=== PATIENT | female | born 1945 | race Caucasian/White ===

== ENCOUNTER 2022-02-01 11:18 | Observation (INO) ==
[2022-02-01] MEDS ORDERED: SODIUM CHLORIDE 0.9% 1000ML 1,000 ML IV STA (11:33)
[2022-02-01] MEDS ORDERED: METOPROLOL TARTRATE 1 MG/ML VIAL IV PRN (11:51)
--- NOTE | 2022-02-01 11:57 | Emergency Department Note ---
Impression & Plan Tachycardia, Dizziness, Anemia ED Provider Note NAME: JIL HALL AGE: 76 SEX: F : 1945 ARRIVES VIA: Ambulance INFORMANT: [Patient] ED PROVIDER(S): [Sukhjinder Vee MD] CHIEF COMPLAINT: Cardiac assessment HISTORY OF PRESENT ILLNESS: The patient is a 76-year-old female who presents to the ER with a faster heart rate. The patient was at her doctor's office for a follow-up appointment and the faster heart rate was noted. She presents by ambulance. She has felt a bit dizzy lately and thought she may have noticed a faster heart rate on the way over in the ambulance. No chest pain. She does feel short of breath with exertion and with stairs, she has noticed this for a few weeks. There has been no cough or congestion. She has had some GI upset lately. She attributes the GI upset to what she had eaten. She had some diarrhea without vomiting. She does have a history of IBS. The patient has no history of coronary disease or A. fib/a flutter. She was never told that she had a rhythm issue. Her does have a history of A. fib and she is familiar with this diagnosis. REVIEW OF SYSTEMS: See HPI for pertinent positives and negatives. A total of ten systems were reviewed and were otherwise negative. PMHx/PSHx: See Below SOCIAL HISTORY: See Below. PHYSICAL EXAM: GENERAL: Patient is in no acute distress. HEENT: No acute trauma, normocephalic atraumatic, mucous membranes moist, no nasal congestion, no scleral icterus. NECK: No stridor, no adenopathy, no meningismus, trachea is midline. LUNGS: Clear to auscultation bilaterally, no wheeze, no rhonchi, breath sounds equal. HEART: Tachycardic and irregular. Subtle systolic murmur heard. ABDOMEN: Soft, nontender, bowel sounds positive, no peritonitis. EXTREMITIES: No cyanosis or edema, full range of motion of all the joints without pain or difficulty, no signs for acute trauma. NEUROLOGIC: Oriented x 3, no acute motor or sensory deficits, no focal weakness. SKIN: No rash, no jaundice, no diaphoresis. Rectal: Brown stool, heme-negative. DIFFERENTIAL DIAGNOSIS: Cardiac ischemia, aortic dissection, pulmonary embolism, SVT, atrial flutter, atrial fibrillation, pneumothorax, pneumonia, pericarditis, myocarditis, esophageal rupture, GERD, cholecystitis, pancreatitis, musculoskeletal, as well as other pathologies. EMERGENCY DEPARTMENT COURSE/PROCEDURES: ECG: Indication was tachycardia. The ECG shows a potential sinus tachycardia with frequent PACs versus an atrial fibrillation/flutter. The rate is 133. There are some T wave inversions in the inferior leads. There is no ST elevation. The QTC is 529. Compared to an ECG from 30 April 2012, significant changes have occurred. Repeat ECG: Indication was tachycardia. The ECG shows a normal sinus rhythm with a rate of 67. There is a left bundle branch block. No ST elevation, no PVCs. The QTc was 479. Compared to today's earlier ECG, the rate has decreased. Continuous Cardiac Monitoring: An order was placed for continuous cardiac monitoring. The monitor shows a rate of 132 with sinus tachycardia and PACs. MEDICAL DECISION MAKING: There was no leukocytosis. The patient was anemic. She has no history of anemia. I did perform a rectal exam, stool was brown and heme-negative. There was a normal platelet count. D-dimer was elevated making PE more likely. No coagulopathy. No renal failure or significant electrolyte abnormality. No concerning liver enzyme elevation. Initial troponin was not elevated making cardiac ischemia less likely. ECG showed a potential sinus tachycardia versus an A. fib/a flutter. Repeat ECG showed a sinus rhythm. The change in her heart rate seemed to happen suddenly and without the administration of rate controlling medications. There was no pancreatitis. The patient did not have any evidence for thyroid dysfunction. Urinalysis did not show infection. COVID test returned negative. Chest x-ray showed potential atelectasis, no CHF. Chest CT did not show any evidence for PE, no pneumonia. The patient received IV saline, 1 L. I had ordered for IV metoprolol for the faster heart rate but, her heart rate suddenly decreased on its own without any medication being administered. I think the patient deserves a hospital stay for further cardiac work-up and monitoring. The cause for the tachycardia is unclear. I am concerned about the possibility of an A. fib or a flutter. Her anemia needs further work-up and the hemoglobin will need to be followed. I spoke with the patient and case management, the on-call hospitalist was consulted. Past Med/Surg History Medical History Acid reflux disease Anxiety Depression Hearing deficit Hiatal hernia Hyperlipidemia Osteoarthritis Surgical History History of appendectomy History of colonoscopy History of dilatation and curettage History of esophagogastroduodenoscopy (EGD) History of left ankle joint replacement History of tooth extraction Family History Other No family history of adverse response to anesthesia Social History Smoking Status: Former smoker Second Hand Exposure: No; Hx Alcohol Use: Yes Alcohol type: wine and hard liquor Hx Substance Use: No Preferred Language: Serbian Communication Ability: Effective 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 Beliefs That Will Affect Care: None Current Living Situation: Spouse Current Living Situation Comment: Lives with Feels Safe at Home: Yes Assistive Devices: Glasses and Hearing Aid - Bilateral Allergies Allergies Allergy/AdvReac Type Severity Reaction Status Date / Time naproxen Allergy Severe throat Verified 02/01/21 13:10 swelling and Hives alendronate sodium AdvReac Mild GERD Verified 02/01/21 13:10 Home Meds Home Medications Medication Instructions Recorded Confirmed aspirin 81 mg tablet,delayed 81 mg PO 3XWK 01/27/21 02/01/21 release ([place] Low Dose Aspirin) cholecalciferol (vitamin D3) 50 2,000 unit PO QAM 01/27/21 02/01/21 mcg (2,000 unit) tablet (Vitamin D3) escitalopram oxalate 10 mg tablet 10 mg PO QAM 01/27/21 02/01/21 (Lexapro) pantoprazole 20 mg tablet,delayed 20 mg PO QAM 01/27/21 02/01/21 release rosuvastatin 10 mg tablet 10 mg PO HS 01/27/21 02/01/21 Results & Data (ED) Vital Signs Vital Signs - 24 hr 02/01/22 11:29 02/01/22 11:29 02/01/22 11:33 Temperature 36.9 C Temperature Source Oral Pulse Rate 128 H Pulse Rate from SpO2 Sensor Pulse Rhythm Regular Pulse Strength Normal Respiratory Rate 20 Respiratory Effort / Characteristics Non-Labored Respiratory Depth Normal Respiratory Pattern Regular Blood Pressure 165/113 H Blood Pressure Mean 130 Blood Pressure Position Lying Pulse Oximetry 98 Oxygen Delivery Method Room Air Room Air Room Air Sepsis Recent Fever Within 48 Hours No Sepsis New/Unexplained Change in Mental Status No Sepsis Action Taken by Nursing No Action Required 02/01/22 11:23 02/01/22 11:24 02/01/22 11:24 Temperature Temperature Source Pulse Rate 129 H 124 H Pulse Rate from SpO2 Sensor 127 H 132 H Pulse Rhythm Pulse Strength Respiratory Rate 10 L 12 Respiratory Effort / Characteristics Respiratory Depth Respiratory Pattern Blood Pressure 169/121 H Blood Pressure Mean 137 Blood Pressure Position Pulse Oximetry 97 92 Oxygen Delivery Method Sepsis Recent Fever Within 48 Hours Sepsis New/Unexplained Change in Mental Status Sepsis Action Taken by Nursing 02/01/22 11:25 02/01/22 11:25 02/01/22 11:29 Temperature Temperature Source Pulse Rate 112 H Pulse Rate from SpO2 Sensor 111 H Pulse Rhythm Pulse Strength Respiratory Rate Respiratory Effort / Characteristics Respiratory Depth Respiratory Pattern Blood Pressure 165/113 H 162/126 H Blood Pressure Mean 130 138 Blood Pressure Position Pulse Oximetry 98 Oxygen Delivery Method Sepsis Recent Fever Within 48 Hours Sepsis New/Unexplained Change in Mental Status Sepsis Action Taken by Nursing 02/01/22 11:29 02/01/22 11:30 02/01/22 11:30 Temperature Temperature Source Pulse Rate 127 H 122 H Pulse Rate from SpO2 Sensor 124 H 58 L Pulse Rhythm Pulse Strength Respiratory Rate Respiratory Effort / Characteristics Respiratory Depth Respiratory Pattern Blood Pressure 164/94 H Blood Pressure Mean 117 Blood Pressure Position Pulse Oximetry 99 98 Oxygen Delivery Method Sepsis Recent Fever Within 48 Hours Sepsis New/Unexplained Change in Mental Status Sepsis Action Taken by Nursing 02/01/22 11:45 02/01/22 12:00 02/01/22 12:00 Temperature Temperature Source Pulse Rate 128 H 97 H Pulse Rate from SpO2 Sensor 130 H 83 Pulse Rhythm Pulse Strength Respiratory Rate 27 H 19 Respiratory Effort / Characteristics Respiratory Depth Respiratory Pattern Blood Pressure 155/129 H Blood Pressure Mean 137 Blood Pressure Position Pulse Oximetry 99 97 Oxygen Delivery Method Sepsis Recent Fever Within 48 Hours Sepsis New/Unexplained Change in Mental Status Sepsis Action Taken by Nursing 02/01/22 12:05 02/01/22 12:05 02/01/22 12:15 Temperature Temperature Source Pulse Rate 104 H 72 Pulse Rate from SpO2 Sensor 106 H 72 Pulse Rhythm Pulse Strength Respiratory Rate 20 20 Respiratory Effort / Characteristics Respiratory Depth Respiratory Pattern Blood Pressure 152/110 H Blood Pressure Mean 124 Blood Pressure Position Pulse Oximetry 97 97 Oxygen Delivery Method Sepsis Recent Fever Within 48 Hours Sepsis New/Unexplained Change in Mental Status Sepsis Action Taken by Nursing 02/01/22 12:17 02/01/22 12:17 02/01/22 12:30 Temperature Temperature Source Pulse Rate 74 Pulse Rate from SpO2 Sensor Pulse Rhythm Pulse Strength Respiratory Rate 17 Respiratory Effort / Characteristics Respiratory Depth Respiratory Pattern Blood Pressure 161/102 H 189/100 H Blood Pressure Mean 121 129 Blood Pressure Position Pulse Oximetry Oxygen Delivery Method Sepsis Recent Fever Within 48 Hours Sepsis New/Unexplained Change in Mental Status Sepsis Action Taken by Nursing 02/01/22 12:30 02/01/22 13:06 02/01/22 13:07 Temperature Temperature Source Pulse Rate 75 82 Pulse Rate from SpO2 Sensor Pulse Rhythm Pulse Strength Respiratory Rate 20 20 Respiratory Effort / Characteristics Respiratory Depth Respiratory Pattern Blood Pressure 185/87 H Blood Pressure Mean 119 Blood Pressure Position Pulse Oximetry 94 Oxygen Delivery Method Sepsis Recent Fever Within 48 Hours Sepsis New/Unexplained Change in Mental Status Sepsis Action Taken by Nursing 02/01/22 13:07 02/01/22 13:15 02/01/22 13:30 Temperature Temperature Source Pulse Rate 68 68 Pulse Rate from SpO2 Sensor 69 67 Pulse Rhythm Pulse Strength Respiratory Rate 16 22 Respiratory Effort / Characteristics Respiratory Depth Respiratory Pattern Blood Pressure 167/86 H Blood Pressure Mean 113 Blood Pressure Position Pulse Oximetry 98 96 Oxygen Delivery Method Sepsis Recent Fever Within 48 Hours Sepsis New/Unexplained Change in Mental Status Sepsis Action Taken by Nursing 02/01/22 13:30 02/01/22 13:45 02/01/22 14:00 Temperature Temperature Source Pulse Rate 61 66 65 Pulse Rate from SpO2 Sensor 57 L 67 66 Pulse Rhythm Pulse Strength Respiratory Rate 16 21 19 Respiratory Effort / Characteristics Respiratory Depth Respiratory Pattern Blood Pressure Blood Pressure Mean Blood Pressure Position Pulse Oximetry 96 97 96 Oxygen Delivery Method Sepsis Recent Fever Within 48 Hours Sepsis New/Unexplained Change in Mental Status Sepsis Action Taken by Nursing 02/01/22 14:09 02/01/22 14:09 02/01/22 14:15 Temperature Temperature Source Pulse Rate 60 69 Pulse Rate from SpO2 Sensor 63 Pulse Rhythm Pulse Strength Respiratory Rate 17 20 Respiratory Effort / Characteristics Respiratory Depth Respiratory Pattern Blood Pressure 181/99 H Blood Pressure Mean 126 Blood Pressure Position Pulse Oximetry 99 Oxygen Delivery Method Sepsis Recent Fever Within 48 Hours Sepsis New/Unexplained Change in Mental Status Sepsis Action Taken by Nursing 02/01/22 14:30 02/01/22 14:31 02/01/22 14:31 Temperature Temperature Source Pulse Rate 67 62 Pulse Rate from SpO2 Sensor 64 62 Pulse Rhythm Pulse Strength Respiratory Rate 15 22 Respiratory Effort / Characteristics Respiratory Depth Respiratory Pattern Blood Pressure 182/80 H Blood Pressure Mean 114 Blood Pressure Position Pulse Oximetry 81 L 99 Oxygen Delivery Method Sepsis Recent Fever Within 48 Hours Sepsis New/Unexplained Change in Mental Status Sepsis Action Taken by Prison Medications Current Medication List: was personally reviewed by me Laboratory Data Attestation: I reviewed the patient's lab results. Result diagrams: 02/01/22 11:30 02/01/22 11:30 Lab Results 02/01/22 02/01/22 02/01/22 Range/Units 11:30 11:30 11:30 WBC 4.68 L (4.8-10.8) K/ul RBC 3.77 L (3.93-5.22) M/uL Hgb 9.4 L (12.0-16.0) g/dl Hct 30.3 L (34.1-44.9) % MCV 80.4 (80.0-100.0) fL MCH 24.9 L (25.0-34.0) pg MCHC 31.0 L (32.0-36.0) g/dL RDW Std Deviation 46.3 (36.4-46.3) fL RDW Coeff of Immanuel 15.9 H (11.5-14.5) % Plt Count 343 (130-400) K/uL MPV 9.1 L (9.4-12.3) fL Immature Gran % (Auto) 0.2 % Neut % (Auto) 65.8 % Lymph % (Auto) 20.3 % [place] % (Auto) 10.7 % Eos % (Auto) 2.6 % Baso % (Auto) 0.4 % Neut # (Auto) 3.08 (1.4-6.5) K/uL Lymph # (Auto) 0.95 L (1.2-3.4) K/uL [place] # (Auto) 0.50 (0.24-0.82) K/uL Eos # (Auto) 0.12 (0-0.50) K/uL Baso # (Auto) 0.02 (0-0.2) K/uL Immature Gran # (Auto) 0.01 (0.00-0.02) K/uL Ovalocytes 1+ PT (9.0-12.0) Seconds INR (0.9-1.1) APTT (21.0-31.0) Seconds PTT Ratio D-Dimer (0-500) ug/L FEU Sodium 139 (136-145) mmol/L Potassium 3.9 (3.5-5.1) mmol/L Chloride 106 (98-107) mmol/L Carbon Dioxide 25 (21-32) mmol/L Anion Gap 8 (3-11) BUN 18 (6-23) mg/dl Creatinine 0.83 (0.6-1.2) mg/dl Est Cr Clr Drug Dosing 60.8 ml/min Est GFR ( Amer) 79.4 ml/min Est GFR (Non-Af Amer) 68.5 ml/min BUN/Creatinine Ratio 21.7 H (10-20) Glucose 94 (70-99(Fasting)) mg/dl Calcium 9.4 (8.5-10.1) mg/dl Magnesium 1.9 (1.7-2.4) mg/dl Total Bilirubin 0.4 (0.2-1.0) mg/dl AST 21 (13-39) U/L ALT 15 (7-52) U/L Alkaline Phosphatase 57 (34-104) U/L Troponin I High Sens 10.5 (0-14) pg/ml Total Protein 7.0 (6.0-8.3) gm/dl Albumin 4.0 (3.4-5.0) gm/dl Globulin 3.0 (2.5-4.0) gm/dl Albumin/Globulin Ratio 1.3 (0.9-2) Lipase 33 (11-82) U/L TSH (0.300-4.500) uIu/ml Urine Color Urine Appearance (Clear) Urine pH (4.5-7.5) Ur Specific [place] (1.000-1.030) Urine Protein (Negative) Urine Glucose (UA) (Negative) Urine Ketones (Negative) Urine Blood (Negative) Urine Nitrite (Negative) Urine Bilirubin (Negative) Urine Urobilinogen (Negative) Ur Leukocyte Esterase (Negative) Lyme Disease IgG Ab (Negative) Lyme Disease IgM Ab (Negative) SARS-CoV-2 (PCR) (Negative) 12/09/1602/01/22 02/01/22 Range/Units 11:30 11:30 11:30 WBC (4.8-10.8) K/ul RBC (3.93-5.22) M/uL Hgb (12.0-16.0) g/dl Hct (34.1-44.9) % MCV (80.0-100.0) fL MCH (25.0-34.0) pg MCHC (32.0-36.0) g/dL RDW Std Deviation (36.4-46.3) fL RDW Coeff of Immanuel (11.5-14.5) % Plt Count (130-400) K/uL MPV (9.4-12.3) fL Immature Gran % (Auto) % Neut % (Auto) % Lymph % (Auto) % [place] % (Auto) % Eos % (Auto) % Baso % (Auto) % Neut # (Auto) (1.4-6.5) K/uL Lymph # (Auto) (1.2-3.4) K/uL [place] # (Auto) (0.24-0.82) K/uL Eos # (Auto) (0-0.50) K/uL Baso # (Auto) (0-0.2) K/uL Immature Gran # (Auto) (0.00-0.02) K/uL Ovalocytes PT 10.3 (9.0-12.0) Seconds INR 1.0 (0.9-1.1) APTT 23.5 (21.0-31.0) Seconds PTT Ratio 0.9 D-Dimer 1970 H* (0-500) ug/L FEU Sodium (136-145) mmol/L Potassium (3.5-5.1) mmol/L Chloride (98-107) mmol/L Carbon Dioxide (21-32) mmol/L Anion Gap (3-11) BUN (6-23) mg/dl Creatinine (0.6-1.2) mg/dl Est Cr Clr Drug Dosing ml/min Est GFR ( Amer) ml/min Est GFR (Non-Af Amer) ml/min BUN/Creatinine Ratio (10-20) Glucose (70-99(Fasting)) mg/dl Calcium (8.5-10.1) mg/dl Magnesium (1.7-2.4) mg/dl Total Bilirubin (0.2-1.0) mg/dl AST (13-39) U/L ALT (7-52) U/L Alkaline Phosphatase (34-104) U/L Troponin I High Sens (0-14) pg/ml Total Protein (6.0-8.3) gm/dl Albumin (3.4-5.0) gm/dl Globulin (2.5-4.0) gm/dl Albumin/Globulin Ratio (0.9-2) Lipase (11-82) U/L TSH 1.032 (0.300-4.500) uIu/ml Urine Color Urine Appearance (Clear) Urine pH (4.5-7.5) Ur Specific [place] (1.000-1.030) Urine Protein (Negative) Urine Glucose (UA) (Negative) Urine Ketones (Negative) Urine Blood (Negative) Urine Nitrite (Negative) Urine Bilirubin (Negative) Urine Urobilinogen (Negative) Ur Leukocyte Esterase (Negative) Lyme Disease IgG Ab Negative (Negative) Lyme Disease IgM Ab Equivocal A (Negative) SARS-CoV-2 (PCR) (Negative) 02/01/22 02/01/22 Range/Units 12:45 12:45 WBC (4.8-10.8) K/ul RBC (3.93-5.22) M/uL Hgb (12.0-16.0) g/dl Hct (34.1-44.9) % MCV (80.0-100.0) fL MCH (25.0-34.0) pg MCHC (32.0-36.0) g/dL RDW Std Deviation (36.4-46.3) fL RDW Coeff of Immanuel (11.5-14.5) % Plt Count (130-400) K/uL MPV (9.4-12.3) fL Immature Gran % (Auto) % Neut % (Auto) % Lymph % (Auto) % [place] % (Auto) % Eos % (Auto) % Baso % (Auto) % Neut # (Auto) (1.4-6.5) K/uL Lymph # (Auto) (1.2-3.4) K/uL [place] # (Auto) (0.24-0.82) K/uL Eos # (Auto) (0-0.50) K/uL Baso # (Auto) (0-0.2) K/uL Immature Gran # (Auto) (0.00-0.02) K/uL Ovalocytes PT (9.0-12.0) Seconds INR (0.9-1.1) APTT (21.0-31.0) Seconds PTT Ratio D-Dimer (0-500) ug/L FEU Sodium (136-145) mmol/L Potassium (3.5-5.1) mmol/L Chloride (98-107) mmol/L Carbon Dioxide (21-32) mmol/L Anion Gap (3-11) BUN (6-23) mg/dl Creatinine (0.6-1.2) mg/dl Est Cr Clr Drug Dosing ml/min Est GFR ( Amer) ml/min Est GFR (Non-Af Amer) ml/min BUN/Creatinine Ratio (10-20) Glucose (70-99(Fasting)) mg/dl Calcium (8.5-10.1) mg/dl Magnesium (1.7-2.4) mg/dl Total Bilirubin (0.2-1.0) mg/dl AST (13-39) U/L ALT (7-52) U/L Alkaline Phosphatase (34-104) U/L Troponin I High Sens (0-14) pg/ml Total Protein (6.0-8.3) gm/dl Albumin (3.4-5.0) gm/dl Globulin (2.5-4.0) gm/dl Albumin/Globulin Ratio (0.9-2) Lipase (11-82) U/L TSH (0.300-4.500) uIu/ml Urine Color Yellow Urine Appearance Clear (Clear) Urine pH 7.0 (4.5-7.5) Ur Specific [place] 1.005 (1.000-1.030) Urine Protein Negative (Negative) Urine Glucose (UA) Negative (Negative) Urine Ketones Negative (Negative) Urine Blood Negative (Negative) Urine Nitrite Negative (Negative) Urine Bilirubin Negative (Negative) Urine Urobilinogen Negative (Negative) Ur Leukocyte Esterase Negative (Negative) Lyme Disease IgG Ab (Negative) Lyme Disease IgM Ab (Negative) SARS-CoV-2 (PCR) NEGATIVE (Negative) Administered Medications Discontinued Medications Sodium Chloride (Nss 1000ml) 1,000 mls @ 999 mls/hr IV .Q1H1M STA Stop: 02/01/22 12:33 Last Infusion: 02/01/22 12:45 Dose: 0 mls/hr Documented By: Admin: 02/01/22 11:34 Dose: 999 mls/hr Documented By: SIS Ioversol (Optiray 320 500ml) 120 ml IV ONCE ONE Stop: 02/01/22 13:02 Last Admin: 02/01/22 13:01 Dose: 120 ml Documented By: LUKE Imaging Data Radiologist's Impression: Chest X-Ray 02/01/22 11:33 XR chest 1V portable CLINICAL HISTORY: Chest pain, nonspecific COMPARISON STUDY: No previous studies for comparison. FINDINGS: Lung volumes are normal. There is no pneumothorax or pleural effusion. Left basilar opacity is noted. This is predominantly linear in configuration. Right lung is clear. Moderate cardiomegaly is present. No evidence for pulmonary edema. Possible hiatal hernia. IMPRESSION: 1. Left basilar opacity. Atelectasis is favored however pneumonia could appear similar. Radiographic follow-up to ensure resolution is recommended. 2. Cardiomegaly without evidence for pulmonary edema. ACT 112: Negative or not required by law. Electronically signed by: Jones Alanis M.D. 02/01/2022 12:11 PM Chest CTA 02/01/22 12:38 CT angio chest PE protocol CLINICAL HISTORY: PE TECHNIQUE: Multidetector row helical CT of the chest was performed with angiographic protocol. Coronal and sagittal reformations were obtained. Coronal and sagittal MIPS were obtained from the axial data set and were submitted for review. Automated dose lowering techniques and/or adjustment according to patient size were utilized for this exam. CT DOSE: 381.12 mGy.cm Comparison: Comparison is made to chest radiograph 02/01/2022 FINDINGS: Lungs and pleura: There is a 4 mm nodule in the right middle lobe (series 4 image 165). Heart and pericardium: Heart size is normal. No pericardial effusion. Vessels: No evidence of pulmonary embolism. Mediastinum and john: Right lower paratracheal lymph nodes noted measuring up to 11 mm in diameter. Chest wall and lower neck: Unremarkable. Abdomen: Moderate hiatal hernia is seen. Partial visualization of hepatic cysts. Bones: Mild degenerative changes are seen. There is a compression deformity of the T11 vertebral body which appears chronic. IMPRESSION: 1. No evidence of pulmonary embolism. 2. Mediastinal lymphadenopathy, nonspecific, possibly reactive. 3. Additional findings as above. ACT 112: Negative or not required by law. Electronically signed by: Bronson Aguilar M.D. 02/01/2022 1:30 PM Discharge Plan Visit Data Chief Complaint: Cardiac Assessment Stated Complaint: Dizziness with standing. From PCP office. ED Provider: Sukhjinder Vee Discharge Problem: Tachycardia, Dizziness, Anemia Patient Disposition: Admitted As Inpatient Condition: Fair Discharge Instructions Interventions: ED Discharge Assessment Last Done: 02/01/22 17:14
[2022-02-01 12:06] LABS: Hematocrit (blood only) 30.3 % (34.1-44.9); Hemoglobin 9.4 g/dl (12.0-16.0); Mean Corpuscular Hemoglobin 24.9 pg (25.0-34.0); Mean Corpuscular Volume 80.4 fL (80.0-100.0); Mean Platelet Volume 9.1 fL (9.4-12.3); Platelet Count 343 K/uL (130-400); RDW Coefficient of Variation 15.9 % (11.5-14.5); RDW Standard Deviation 46.3 fL (36.4-46.3); Red Blood Count 3.77 M/uL (3.93-5.22); White Blood Count 4.68 K/ul (4.8-10.8)
[2022-02-01 12:07] LABS: Basophils # (auto) 0.02 K/uL (0-0.2); Basophils % (auto) 0.4 %; Eosinophils # (auto) 0.12 K/uL (0-0.50); Eosinophils % (auto) 2.6 %; Immature Granulocytes # (auto) 0.01 K/uL (0.00-0.02); Immature Granulocytes % (auto) 0.2 %; Lymphocytes # (auto) 0.95 K/uL (1.2-3.4); Lymphocytes % (auto) 20.3 %; Monocytes % (auto) 10.7 %; Neutrophils # (auto) 3.08 K/uL (1.4-6.5); Neutrophils % (auto) 65.8 %; Ovalocytes 1+
[2022-02-01 12:10] LABS: Troponin I High Sensitivity 10.5 pg/ml (0-14)
--- NOTE | 2022-02-01 12:12 | XRay Report ---
XR chest 1V portable CLINICAL HISTORY: Chest pain, nonspecific COMPARISON STUDY: No previous studies for comparison. FINDINGS: Lung volumes are normal. There is no pneumothorax or pleural effusion. Left basilar opacity is noted. This is predominantly linear in configuration. Right lung is clear. Moderate cardiomegaly is present. No evidence for pulmonary edema. Possible hiatal hernia. IMPRESSION: 1. Left basilar opacity. Atelectasis is favored however pneumonia could appear similar. Radiographic follow-up to ensure resolution is recommended. 2. Cardiomegaly without evidence for pulmonary edema. ACT 112: Negative or not required by law. Electronically signed by: Jones Alanis M.D. 02/01/2022 12:11 PM
[2022-02-01 12:14] LABS: Albumin Globulin Ratio 1.3 (0.9-2); BUN Creatinine Ratio 21.7 (10-20); Bilirubin,Total 0.4 mg/dl (0.2-1.0); Calcium 9.4 mg/dl (8.5-10.1); Creatinine Clr Calc Pharmacy 60.8 ml/min; Est GFR (African American) 79.4 ml/min; Est GFR (Non-African American) 68.5 ml/min; Potassium 3.9 mmol/L (3.5-5.1)
[2022-02-01 12:15] LABS: Partial Thromboplastin Ratio 0.9; Partial Thromboplastin Time 23.5 Seconds (21.0-31.0); Prothrombin Time 10.3 Seconds (9.0-12.0)
[2022-02-01 12:36] LABS: D Dimer 1970 ug/L FEU (0-500)
[2022-02-01] MEDS ORDERED: OPTIRAY 320 500ml IV ONE (13:01)
[2022-02-01 13:15] LABS: Appearance Urine Clear (Clear); Bilirubin Urine Negative (Negative); Blood Urine Negative (Negative); Color Urine Yellow; Glucose Urine UA Negative (Negative); Ketones Urine Negative (Negative); Leukocyte Esterase Urine Negative (Negative); Nitrite Urine Negative (Negative); Protein Urine Negative (Negative); Specific Gravity Urine 1.005 (1.000-1.030); Urobilinogen Urine Negative (Negative)
--- NOTE | 2022-02-01 13:32 | CT Scan Report ---
CT angio chest PE protocol CLINICAL HISTORY: PE TECHNIQUE: Multidetector row helical CT of the chest was performed with angiographic protocol. Laura l and sagittal reformations were obtained. Coronal and sagittal MIPS were obtained from the axial mega a set and were submitted for review. Automated dose lowering techniques and/or adjustment according to patient size were utilized for this exam. CT DOSE: 381.12 mGy.cm Comparison: Comparison is made to chest radiograph 02/01/2022 FINDINGS: Lungs and pleura: There is a 4 mm nodule in the right middle lobe (series 4 image 165). Heart and pericardium: Heart size is normal. No pericardial effusion. Vessels: No evidence of pulmonary embolism. Mediastinum and john: Right lower paratracheal lymph nodes noted measuring up to 11 mm in diameter. Chest wall and lower neck: Unremarkable. Abdomen: Moderate hiatal hernia is seen. Partial visualization of hepatic cysts. Bones: Mild degenerative changes are seen. There is a compression deformity of the T11 vertebral body which appears chronic. IMPRESSION: 1. No evidence of pulmonary embolism. 2. Mediastinal lymphadenopathy, nonspecific, possibly reactive. 3. Additional findings as above. ACT 112: Negative or not required by law. Electronically signed by: Bronson Aguilar M.D. 02/01/2022 1:30 PM
--- NOTE | 2022-02-01 14:33 | Electrocardiogram Report ---
Test Reason : Blood Pressure : / mmHG Vent. Rate : 133 BPM Atrial Rate : 136 BPM P-R Int : 208 ms QRS Dur : 118 ms QT Int : 356 ms P-R-T Axes : 000 050 002 degrees QTc Int : 529 ms Poor data quality, interpretation may be adversely affected Sinus tachycardia Low voltage QRS Incomplete left bundle block Abnormal ECG When compared with ECG of 30-APR-2012 18:01, Vent. rate has increased BY 69 BPM Incomplete left bundle block is now Present Borderline criteria for Inferior infarct are no longer Present Confirmed by Moose Sewell ([id number]) on 02/01/2022 2:33:23 PM Referred By: Confirmed By:Moose Sewell
--- NOTE | 2022-02-01 14:35 | History & Physical Report ---
Date of Service February 01, 2022 Assessment & Plan (1) Tachycardia: Plan: Tachycardia, unclear if MAT versus sinus tachycardia versus A. fib Patient seen in PCPs office, jumped from 60-1 30s. EKG reportedly did not show A. fib, EKG in ER tachycardic with possible P waves but prior to slowing rate spontaneously converted to a rate of 60s, sinus. No prior history of A. fib. Denies chest pain. Patient does report that she gets anxious in the doctor's office. Continue on telemetry overnight Cardiac evaluation overnight Echo pended If no acute findings overnight, patient should have mobile telemetry to monitor for A. fib/arrhythmia. If A. fib is appreciated, recommend DOAC anticoagulation at that time. No potassium, sodium derangements D-dimer is elevated, follow-up CTA CTA: 1. No evidence of pulmonary embolism. 2. Mediastinal lymphadenopathy, nonspecific, possibly reactive.3. Additional findings as above. ? P R prolongation. Lyme pending. Anemia - Gives blood intermittently, yearly to Q6. Almost passed out last time and hasn't since - No hx renal disease -Denies melena, Hemoccult negative. Does endorse dark but not black bowel movements. History of hiatal hernia MCV 80, hemoglobin 9.4 on admission. No prior baseline system. Trended. PPI increased from 20 mg to 40 Iron panel pending Hemoglobin trended Has had recent colonoscopies and EGD, known hiatal hernia on PPI Hyperlipidemia Continue rosuvastatin Anxiety Continue Lexapro Hypertension Amlodipine as needed, beta-adan/CCB deferred due to rate of 6062 Aspirin deferred in setting of anemia evaluation and hemoglobin trending DVT prophylaxis: SCDs Diet: Heart healthy if repeat hemoglobin stable Disposition: Medical telemetry CODE STATUS: Full code (2) Nausea: History of Present Illness Primary Care Provider: Misael Francis MD 76yo F who presents with Routine appt [facility] [place] Dr. Francis and [facility] Nurse saw HR was 72, then on recheck was 136. Sent for ?afib. Initial EKG with tachycardia and? P waves but inconsistent, prior to slowing rhythm/received metoprolol spontaneously converted to a rate of 60. Denies palpitations, chest pain Reports normally used to walk 45min per day, but last few weeks has only been able to go for 20-25 minutes before gettign tired. No chest pain, but mild dyspnea in the last month different from usual. Trace wheeze which is unusual for her. no cough. No history of afib. Afib was not seen in [facility] EKG. No heart attacks, heart disease, former tobacco 18-28 0.5ppd No hx of strokes No thyroid problems Endorses anxiety on lexapro HLD on rosuvastatin previously, has recently restarted. Hiatal hernia on PPI Colonoscopy annually due to sessil epolyps with no signs hx cancer. No history of bleeding problems, melena. Does have high stress and hiatal hernia with discomfort. Denies black/melenic bowel movements, does endorse some diarrhea and darker color but not black. Takes Protonix 20 mg daily. 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 and has not given in over a year Medical History: Reviewed Medications: Reviewed Surgical History: Reviewed Allergies: Reviewed Social History: Code Status: Allergies Allergy/AdvReac Type Severity Reaction Status Date / Time naproxen Allergy Severe throat Verified 02/01/21 13:10 swelling and Hives alendronate sodium AdvReac Mild GERD Verified 02/01/21 13:10 Home Medications Medication Instructions Recorded Confirmed Type aspirin 81 mg tablet,delayed 81 mg PO 3XWK 01/27/21 02/01/21 History release (Chapito Low Dose Aspirin) cholecalciferol (vitamin D3) 50 2,000 unit PO QAM 01/27/21 02/01/21 History mcg (2,000 unit) tablet (Vitamin D3) escitalopram oxalate 10 mg tablet 10 mg PO QAM 01/27/21 02/01/21 History (Lexapro) pantoprazole 20 mg tablet,delayed 20 mg PO QAM 01/27/21 02/01/21 History release rosuvastatin 10 mg tablet 10 mg PO HS 01/27/21 02/01/21 History Past Med/Surg History Medical History Acid reflux disease Anxiety Depression Hearing deficit Hiatal hernia Hyperlipidemia Osteoarthritis Surgical History History of appendectomy History of colonoscopy History of dilatation and curettage History of esophagogastroduodenoscopy (EGD) History of left ankle joint replacement History of tooth extraction Family History Other No family history of adverse response to anesthesia Social History Smoking Status: Former smoker Second Hand Exposure: No; Hx Alcohol Use: Yes Alcohol type: wine and hard liquor Hx Substance Use: No Preferred Language: Icelandic Communication Ability: Effective Lesson Instructor Required: No Beliefs That Will Affect Care: None Current Living Situation: Spouse Current Living Situation Comment: Lives with Feels Safe at Home: Yes Assistive Devices: Glasses and Hearing Aid - Bilateral Review of Systems Review of Systems: All systems reviewed & are unremarkable except as noted in HPI & below Physical Exam Physical Exam: General: A&Ox3. NAD. Cooperative. HEENT: Atraumatic, normocephalic. Vision/hearing grossly intact Pulm: CTAB A&P. -wheezes, -rales, -rhonchi. Symmetrical chest rise. No increased work of breathing. No respiratory distress. Cardiac: RRR, -mrg. Radial pulses intact and symmetrical. Abdominal: Nontender, nondistended, soft. BS present. Extremities: Warm, dry. Moves all extremities equally. No pitting edema Results & Data Results & Data ([facility]) Vital Signs (Past 12 Hours) Vital Signs Temp Pulse Resp BP Pulse Ox O2 Del Method 02/01/22 13:30 61 16 96 02/01/22 13:30 167/86 H 02/01/22 13:15 68 22 96 02/01/22 13:07 68 16 98 02/01/22 13:07 185/87 H 02/01/22 13:06 82 20 02/01/22 12:30 75 20 94 02/01/22 12:30 189/100 H 02/01/22 12:17 161/102 H 02/01/22 12:17 74 17 02/01/22 12:15 72 20 97 02/01/22 12:05 152/110 H 02/01/22 12:05 104 H 20 97 02/01/22 12:00 97 H 19 97 02/01/22 12:00 155/129 H 02/01/22 11:45 128 H 27 H 99 02/01/22 11:30 122 H 98 02/01/22 11:30 164/94 H 02/01/22 11:29 127 H 99 12/07/22 11:29 162/126 H 02/01/22 11:25 165/113 H 02/01/22 11:25 112 H 98 02/01/22 11:24 169/121 H 02/01/22 11:24 124 H 12 92 02/01/22 11:23 129 H 10 L 97 02/01/22 11:33 Room Air 02/01/22 11:29 Room Air 02/01/22 11:29 36.9 C 128 H 20 165/113 H 98 Room Air PG Care Time/CCT Total # of Minutes Spent Total Time Spent with Patient: Total time spent is greater than 50% in coordination of care (as documented) at patient's floor/unit and/or counseling patient: Coding Level of Care Code INT OBSERVATION CARE 50M LVL 2 Diagnoses Tachycardia R00.0 Nausea R11.0
--- NOTE | 2022-02-01 14:38 | Electrocardiogram Report ---
Test Reason : Blood Pressure : / mmHG Vent. Rate : 067 BPM Atrial Rate : 067 BPM P-R Int : 184 ms QRS Dur : 126 ms QT Int : 454 ms P-R-T Axes : 047 000 075 degrees QTc Int : 479 ms Normal sinus rhythm Left bundle branch block Abnormal ECG When compared with ECG of 01-FEB-2022 11:24, (unconfirmed) Vent. rate has decreased BY 66 BPM T wave inversion no longer evident in Inferior leads Nonspecific T wave abnormality, worse in Lateral leads Confirmed by Moose Sewell ([id number]) on 02/01/2022 2:38:17 PM Referred By: REFERRED SELF Confirmed By:Moose Sewell
[2022-02-01 16:06] LABS: Lyme Ab IgG w/WB Rflx Negative (Negative)
[2022-02-01 16:15] LABS: Lyme Ab IgM w/WB Rflx Equivocal (Negative)
[2022-02-01] MEDS ORDERED: ACETAMINOPHEN 325 MG TAB PO PRN (17:15)
[2022-02-01 18:38] LABS: Troponin I High Sensitivity 21.9 pg/ml (0-14)
[2022-02-01] MEDS ORDERED: ROSUVASTATIN CALCIUM 10 MG TAB PO SCH (21:00)
[2022-02-01] MEDS: NSS + 20MEQ KCL 20 MEQ/1,000 ML BAG IV SCH (22:10)
[2022-02-02 06:09] LABS: Basophils # (auto) 0.02 K/uL (0-0.2); Basophils % (auto) 0.6 %; Eosinophils # (auto) 0.14 K/uL (0-0.50); Eosinophils % (auto) 4.2 %; Hematocrit (blood only) 27.3 % (34.1-44.9); Hemoglobin 8.5 g/dl (12.0-16.0); Immature Granulocytes # (auto) 0.01 K/uL (0.00-0.02); Immature Granulocytes % (auto) 0.3 %; Lymphocytes # (auto) 0.64 K/uL (1.2-3.4); Lymphocytes % (auto) 19.3 %; Mean Corpuscular Hemoglobin 24.7 pg (25.0-34.0); Mean Corpuscular Hgb Conc 31.1 g/dL (32.0-36.0); Mean Corpuscular Volume 79.4 fL (80.0-100.0); Mean Platelet Volume 9.2 fL (9.4-12.3); Monocytes # (auto) 0.44 K/uL (0.24-0.82); Monocytes % (auto) 13.3 %; Neutrophils # (auto) 2.06 K/uL (1.4-6.5); Neutrophils % (auto) 62.3 %; Platelet Count 296 K/uL (130-400); RDW Coefficient of Variation 15.9 % (11.5-14.5); RDW Standard Deviation 45.6 fL (36.4-46.3); Red Blood Count 3.44 M/uL (3.93-5.22); White Blood Count 3.31 K/ul (4.8-10.8)
[2022-02-02 06:38] LABS: Troponin I High Sensitivity 14.6 pg/ml (0-14)
[2022-02-02 06:41] LABS: Calcium 8.7 mg/dl (8.5-10.1); Creatinine Clr Calc Pharmacy 63.3 ml/min; Est GFR (Non-African American) 71.6 ml/min; Potassium 3.9 mmol/L (3.5-5.1)
[2022-02-02] MEDS ORDERED: PANTOprazole 40 MG TAB PO SCH (09:00)
[2022-02-02] MEDS ORDERED: amLODIPine BESYLATE 5 MG TAB PO SCH (09:00)
[2022-02-02] MEDS ORDERED: ESCITALOPRAM OXALATE 10 MG TAB PO SCH (09:00)
[2022-02-02] MEDS: NSS + 20MEQ KCL 20 MEQ/1,000 ML BAG IV SCH (10:00)
[2022-02-02 11:10] LABS: Basophils # (auto) 0.02 K/uL (0-0.2); Basophils % (auto) 0.5 %; Eosinophils # (auto) 0.09 K/uL (0-0.50); Eosinophils % (auto) 2.1 %; Hematocrit (blood only) 28.2 % (34.1-44.9); Hemoglobin 8.5 g/dl (12.0-16.0); Immature Granulocytes # (auto) 0.01 K/uL (0.00-0.02); Immature Granulocytes % (auto) 0.2 %; Lymphocytes # (auto) 0.66 K/uL (1.2-3.4); Lymphocytes % (auto) 15.5 %; Mean Corpuscular Hemoglobin 24.5 pg (25.0-34.0); Mean Corpuscular Hgb Conc 30.1 g/dL (32.0-36.0); Mean Corpuscular Volume 81.3 fL (80.0-100.0); Mean Platelet Volume 9.3 fL (9.4-12.3); Monocytes # (auto) 0.44 K/uL (0.24-0.82); Monocytes % (auto) 10.3 %; Neutrophils # (auto) 3.05 K/uL (1.4-6.5); Neutrophils % (auto) 71.4 %; Platelet Count 294 K/uL (130-400); RDW Coefficient of Variation 15.9 % (11.5-14.5); RDW Standard Deviation 46.6 fL (36.4-46.3); Red Blood Count 3.47 M/uL (3.93-5.22); White Blood Count 4.27 K/ul (4.8-10.8)
--- NOTE | 2022-02-02 13:39 | Discharge Summary ---
Date of Service February 02, 2022 Admission HPI Per Admitting Provider 76yo F who presents with Routine appt [facility] [place] [facility] Dr. Francis and [facility] Nurse saw HR was 72, then on recheck was 136. Sent for ?afib. Initial EKG with tachycardia and? P waves but inconsistent, prior to slowing rhythm/received metoprolol spontaneously converted to a rate of 60. Denies palpitations, chest pain Reports normally used to walk 45min per day, but last few weeks has only been able to go for 20-25 minutes before gettign tired. No chest pain, but mild dyspnea in the last month different from usual. Trace wheeze which is unusual for her. no cough. No history of afib. Afib was not seen in [facility] EKG. No heart attacks, heart disease, former tobacco 18-28 0.5ppd No hx of strokes No thyroid problems Endorses anxiety on lexapro HLD on rosuvastatin previously, has recently restarted. Hiatal hernia on PPI Colonoscopy annually due to sessil epolyps with no signs hx cancer. No history of bleeding problems, melena. Does have high stress and hiatal hernia with discomfort. Denies black/melenic bowel movements, does endorse some diarrhea and darker color but not black. Takes Protonix 20 mg daily. 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 and has not given in over a year Medical History: Reviewed Medications: Reviewed Surgical History: Reviewed Allergies: Reviewed Social History: Code Status: Principal Diagnosis Iron def anemia Discharge Data Allergies Allergy/AdvReac Type Severity Reaction Status Date / Time naproxen Allergy Severe throat Verified 02/01/21 13:10 swelling and Hives alendronate sodium AdvReac Mild GERD Verified 02/01/21 13:10 Consultations 02/01/22 13:43 ED Decision to Admit Stat Ordered Studies 02/01/22 12:38 CT angio chest PE protocol Stat Hospital Course (1) Tachycardia: Tachycardia, no evidence of Afib Patient seen in PCPs office, jumped from 60-1 30s. EKG reportedly did not show A. fib, EKG in ER tachycardic with possible P waves but prior to slowing rate spontaneously converted to a rate of 60s, sinus. No prior history of A. fib. Denies chest pain. Patient does report that she gets anxious in the doctor's office. Continue on telemetry overnight Cardiac evaluation overnight Echo pended If no acute findings overnight, patient should have mobile telemetry to monitor for A. fib/arrhythmia. If A. fib is appreciated, recommend DOAC anticoagulation at that time. No potassium, sodium derangements D-dimer is elevated, follow-up CTA CTA: 1. No evidence of pulmonary embolism. 2. Mediastinal lymphadenopathy, nonspecific, possibly reactive.3. Additional findings as above. Lyme is equivocal, definitive study pending -Discharge on Home 30 day heart monitor (2) Iron deficiency: Iron Def Anemia, given low Iron levels - Gives blood intermittently, yearly to Q6. Almost passed out last time and hasn't since - No hx renal disease -Denies melena, Hemoccult negative. Does endorse dark but not black bowel movements. History of hiatal hernia MCV 80, hemoglobin 9.4 on admission. No prior baseline system. Trended. PPI increased from 20 mg to 40 Has had recent colonoscopies and EGD, known hiatal hernia on PPI -Discharge on PO Iron (3) HTN (hypertension): BP high throughout stay start low dose Amlodipine Follow up with PCP (4) Nausea: Total Time Total Time Spent Total Time Spent (In Minutes): 35 Discharge Plan Discharge Items Patient Disposition: Home - Self-Care Reason For Visit: TACHYCARDIA, SOB Discharge Diagnosis: Tachycardia, iron def anemia Condition on Discharge: Fair Activity: Resume your previous activity Non-emergency contact: Primary Care Provider Call non-emergency contact if: you have any medication questions Follow-up/Referrals: Misael Francis MD [Primary Care Provider] - Diet: Regular Addtl Attending Provider Instructions: Please make appointment to follow up with your PCP You will receive a heart monitor in the mail in the next few days, please follow the instructions, its self explanatory Pending Studies at Discharge: No Stand-Alone Forms: My [employer], Smoking Cessation Medications and DC Order Prescriptions: New amlodipine [Norvasc] 5 mg Tablet 5 mg PO QAM 30 Days Qty: 30 0RF pantoprazole 40 mg Tablet,Delayed Release (Dr/Ec) 40 mg PO DAILY 30 Days Qty: 30 0RF ferrous sulfate 325 mg (65 mg iron) Tablet,Delayed Release (Dr/Ec) 325 mg PO BIDM 30 Days Qty: 60 0RF Continued aspirin [Chapito Low Dose Aspirin] 81 mg Tablet,Delayed Release (Dr/Ec) 81 mg PO 3XWK Label Comments: takes in the am--sun/sun/sun escitalopram oxalate [Lexapro] 10 mg Tablet 10 mg PO QAM rosuvastatin 10 mg Tablet 10 mg PO HS cholecalciferol (vitamin D3) [Vitamin D3] 50 mcg (2,000 unit) Tablet 2,000 unit PO QAM Discontinued pantoprazole 20 mg Tablet,Delayed Release (Dr/Ec) 20 mg PO QAM Discharge Orders: Discharge Order (Routine); Ordered 02/02/22 Ordered By: David Larose Admission Data Admit Date/Time: 02/01/22 14:37 Attending Provider: David Larose Admit Provider: Igor Christopher Primary Care Provider: Misael Francis Other Providers: Igor Christopher Coding Level of Care Code D/C DAY MANAGEMENT >30 MINS Diagnoses Tachycardia R00.0 Iron deficiency E61.1 HTN (hypertension) I10 Nausea R11.0 Time Spent (min) 35
[2022-02-02] MEDS ORDERED: FERROUS SULFATE 325 MG TAB PO SCH (17:00)
[2022-02-03 13:09] LABS: 18KDIGG Band NON-REACTIVE; 23KDIGG Band NON-REACTIVE; 23KDIGM Band NON-REACTIVE; 28KDIGG Band NON-REACTIVE; 30KDIGG Band NON-REACTIVE; 39KDIGG Band NON-REACTIVE; 39KDIGM Band NON-REACTIVE; 41KDIGG Band NON-REACTIVE; 41KDIGM Band NON-REACTIVE; 45KDIGG Band NON-REACTIVE; 58KDIGG Band NON-REACTIVE; 66KDIGG Band NON-REACTIVE; 93KDIGG Band REACTIVE; Lyme Antibodies, WB IgG NEGATIVE (NEGATIVE); Lyme Antibodies, WB IgM NEGATIVE (NEGATIVE)
== END 2022-02-02 15:28 | disposition home or self-care (01) ==
LOC: ED 11:18 → EDINP 11:18 → SUATTDRO 14:37 → 2N 18:50